=== PATIENT | female | born 1955 | race Caucasian/White ===

== ENCOUNTER 2018-09-29 09:13 | Inpatient (IN) | payer BC ==
[~2018-09-29] VITALS: Ht 167.6 cm; Wt 101.8 kg
[~2018-09-29 09:13] MED LIST: ALEVE 220MG220 MG PO; FE-TABS325 MG PO; FOLIC ACID 40400 MCG PO; OYSTER CALCIUM500 M1 PO; VITAMIN C500 MG PO
[2018-11-07] VITALS (10 sets, daily range): BP systolic 119–154; BP diastolic 46–91; PULSE 58–84; TEMP 97.6–98.1
[2018-11-07] MEDS ORDERED: TYLENOL 500MG500 MG PO (06:50)
[2018-11-07] MEDS ORDERED: GLUCOPHAGE500 MG/TAB PO (06:51)
--- NOTE | 2018-11-07 14:20 | NUR ---
returned to room from PACU per bed, awake and alert, IV infusing and placed on pump at 125ml/hr, O2 off and O2 sat 97%, parker cath patent draining clear yellow urine, SCDS and ALESSANDRA hose on bilaterally, has sensation to feet and is able to do ankle pumps, occlusive dressing to left hip CD&I,
--- NOTE | 2018-11-07 14:30 | NUR ---
full assessment completed, see interventions for further info, takes water and tolerates well
--- NOTE | 2018-11-07 15:00 | NUR ---
c/o pain to left h ip, medicated with roxicodone 5mg, resting between checks
--- NOTE | 2018-11-07 15:26 | NUR ---
ANGY met with the patient to discuss a discharge plan. The patient lives in [place] with her , Karel. The patient has a walker and a CPAP and receives supplies from [facility] and reports independence with ADLs. The patient's PCP is Dr. Gonsales and patient receives medications from [facility]. [place] with no difficulties. The patient does not have advanced directives in the EMR but was interested in DPOA-HC form. ANGY provided the form. The patient plans to return home with outpatient physical therapy at [facility], first appointment is Tuesday, 11/13. Patient's family will provide transportation. There are no additional needs at this time.
--- NOTE | 2018-11-07 15:35 | NUR ---
continues to c/o pain to left hip, medicated with another roxicodone 5mg
--- NOTE | 2018-11-07 16:00 | NUR ---
states pain is now better since receiving second roxicodone
--- NOTE | 2018-11-07 16:30 | NUR ---
instructed on ordering something to eat, verbalizes understanding
--- NOTE | 2018-11-07 17:24 | NUR ---
had regular food and tolerated well, is beginning to c/o increased pain to left hip, informed her it was too early at this time and she verbalizes understanding, states it is not out of control in pain
--- NOTE | 2018-11-07 18:00 | NUR ---
out to vu in bed for jendo warning, IV fluids stopped during this time
--- NOTE | 2018-11-07 19:08 | NUR ---
bedside shift report given to Kamran, \rN
--- NOTE | 2018-11-07 20:20 | NUR ---
Lying in bed with eyes open. Rating pain 10/10 in left hip, describes as intermittent sharp pain. Administered pain medication as ordered. Dressing to left hip CDI. SCDs in place. Ruiz cath patent. Patient denies further needs at this time.
--- NOTE | 2018-11-07 20:48 | NUR ---
Sitting up in chair talking with company. Company leaves at this time. Assessment completed. Rates pain 6/10 in right knee that she describes as dull and constant. Dressing to right knee CDI. Patient requests to ambulate in vu. Gait slow but steady, assist of one with use of walker and gait belt. Ambulates to [facility] nurses station and back to room. Gets in bed, raises head of bed. SCDs applied and the jet stream. Patient denies further needs at this time.
[2018-11-08] VITALS: BP 126/66; PULSE 87; TEMP 98
--- NOTE | 2018-11-08 02:37 | NUR ---
Lying in bed with eyes open. Patient expresses that she is much more comfortable than she was at the start of the shift. Rates pain 4-5/10 in left hip, describes pain as an ache. Dressing to left hip CDI. Ruiz patent. Patient denies further needs at this time.
[2018-11-08 04:00] VITALS: BP 126/66; PULSE 96; TEMP 98.2
--- NOTE | 2018-11-08 04:49 | NUR ---
Requests to use bathroom to see if she can have a bowel movment. Assist x1 with use of walker to bathroom. Patient able to pass gas but not able to have bowel movement. Requests to sit up in chair. Legs reclined. Ice pack placed to left hip. Dressing on left hip CDI. Patient denies further needs.
--- NOTE | 2018-11-08 05:51 | NUR ---
Rating pain 6-7/10 in left hip that is sharp causing pain into her quad. Pain medication administered as ordered. Dressing to left hip CDI. Patient lying in bed. Denies further needs at this time.
[2018-11-08 06:26] LABS: HEMOGLOBIN 11.6 g/dl (12.5-16.0)
[2018-11-08 06:40] LABS: HEMATOCRIT 33.6 % (37.0-47.0)
[2018-11-08 07:20] VITALS: BP 129/55; PULSE 90; TEMP 98.1
--- NOTE | 2018-11-08 07:20 | NUR ---
student GENERAL MAINTENANCE MECHANIC in and assisting with her care
--- NOTE | 2018-11-08 08:10 | NUR ---
resting in bed dozing at intervals, has ordered breakfast, full assessment completed, see interventions for further info,
--- NOTE | 2018-11-08 08:45 | NUR ---
called nurse to room, entered room and had mod amount liquid and undigested food emesis, denies any nausea before just felt like something had "gotten stuck", physical therapy in to work with patient, will monitor
--- NOTE | 2018-11-08 09:00 | NUR ---
ambulated out in vu with physical therapy and moves well, denies nausea
--- NOTE | 2018-11-08 10:25 | NUR ---
in bed and appears to be sleeping, awakens easily but then goes back to sleep quickly, denies pain or needs
[2018-11-08 11:26] VITALS: BP 134/63; PULSE 78; TEMP 97.7
--- NOTE | 2018-11-08 11:45 | NUR ---
remains sleeping, resp quiet and easy, awakened and encouraged to try and order something for lunch
--- NOTE | 2018-11-08 13:15 | NUR ---
up to bathroom with assistance and ambulated into bathroom, voided qs, then ambulated out to vu with physical therapy for group exercises
--- NOTE | 2018-11-08 14:00 | NUR ---
ambulated back to room after therapy and remains up in recliner
--- NOTE | 2018-11-08 15:19 | NUR ---
resting in bed visiting with family
--- NOTE | 2018-11-08 16:04 | NUR ---
up to bathroom with assistance and then ambulated back to bed independently
[2018-11-08 16:15] VITALS: BP 134/51; PULSE 90; TEMP 99.3
--- NOTE | 2018-11-08 17:30 | NUR ---
appears to be sleeping, awakened and meds given, assisted up to bathroom and voids qs
--- NOTE | 2018-11-08 19:08 | NUR ---
bedside shift report given to KAUSHAL Wayne
[2018-11-08 20:23] VITALS: BP 150/60; PULSE 99; TEMP 98.9
--- NOTE | 2018-11-08 20:50 | NUR ---
Patient assessment completed. Patient a/o with VSS. Patient does c/o some mild pain, requested PRN tramadol. 100mg was given. Patient has aquacell to left hip with and ice pack. Patient has IV INT to right hand. Patient heart and lung sounds normal. Patient states she is anxious because her daughters water broke and she is coming here to [facility] to have her baby. Patient has no other conerns, call light within reach, will continue to monitor
--- NOTE | 2018-11-08 22:04 | NUR ---
Patient ambulated in room with stand by assist. No issues. Was able to walk to restroom with no problems, 200output yellow clear urine.
[2018-11-09 00:18] VITALS: BP 140/69; PULSE 102; TEMP 98.3
[2018-11-09 02:57] VITALS: BP 125/50; PULSE 90; TEMP 98.4
--- NOTE | 2018-11-09 03:28 | NUR ---
Patient had episode of emesis around 0200. Small amount of light brown liquid. Patient states she has not thrown up since yesterday morning. Patient denies pain. Patient is currently sleeping in room. Call light within reach, will continue to monitor
--- NOTE | 2018-11-09 05:45 | NUR ---
Patient sleeping in room. Call light within reach, will continue to monitor
[2018-11-09] MEDS ORDERED: ASPI325T6 PO (06:24)
[2018-11-09] MEDS ORDERED: ULTRAM 50MG TAB50 MG PO (06:24)
[2018-11-09] MEDS ORDERED: CELEBREX 200MG200 MG PO (06:24)
[2018-11-09] MEDS ORDERED: ZOFRAN ODT4 MG PO (06:25)
[2018-11-09 06:42] LABS: HEMOGLOBIN 11.8 g/dl (12.5-16.0)
[2018-11-09 06:53] LABS: HEMATOCRIT 33.7 % (37.0-47.0)
--- NOTE | 2018-11-09 07:10 | NUR ---
Report from Siobhan EASLEY.
[2018-11-09 08:30] VITALS: BP 144/64; PULSE 90; TEMP 98.9
--- NOTE | 2018-11-09 09:33 | NUR ---
PT OUT TO [place] FOR THERAPY. DRESSING TO LEFT HIP CDI. PAIN CONTROLLED WITH PO PAIN MEDS. NO N/V THIS AM. REPORT OF NAUSEA OVERNIGHT. DR. LANDEROS ROUNDED THIS AM. POSSIBLE DC TO HOME THIS PM.
--- NOTE | 2018-11-09 09:41 | NUR ---
Initial visit; Patient thanked Museum Guide for looking in on her and wished her well, a rapid rocovery and congratulations on the of her new grand-daughter.
--- NOTE | 2018-11-09 10:32 | NUR ---
PT TO OB TO SEE NEW GRANDBABY AND DAUGHTER. PT LEFT FLOOR WITH PER WHEEL CHAIR.
[2018-11-09 11:41] VITALS: BP 127/66; PULSE 85; TEMP 98.7
--- NOTE | 2018-11-09 16:00 | NUR ---
DISCHARGE ORDERS REVIEWED WITH PT AND AYANNALIY QUESTIONS ANSWERED. PT LEFT PER WHEEL CHAIR WITH TO OB TO VISIT [facility].
== END 2018-11-09 16:01 | disposition home or self-care (01) | DRG 470 ==
LOC: JCC 11-07 06:27
PROVIDERS: ADMIT Orthopaedic Surgery
PROC: 0SRB04A Replacement of Left Hip Joint with Ceramic on Polyethylene Synthetic Substitute, Uncemented, Open Approach (ICD-10-PCS; principal; 2018-11-07 10:30)
DX: M16.12 Unilateral primary osteoarthritis, left hip (principal); G47.33 Obstructive sleep apnea (adult) (pediatric); E11.9 Type 2 diabetes mellitus without complications
CPT/HCPCS: A4314; A9284; C1713; C1776; J2270; J2405; J2704; J3010; J7030; J7050; J7120

== ENCOUNTER → 2018-10-25 | Outpatient (CLI) | payer BC | LOC: COL.LAB 15:11 | DX: Z01.812 Encounter for preprocedural laboratory examination (principal); Z01.83 Encounter for blood typing; M16.0 Bilateral primary osteoarthritis of hip; M17.0 Bilateral primary osteoarthritis of knee ==